=== PATIENT | female | born 1980 | race Caucasian/White ===

== ENCOUNTER → 2021-12-15 15:58 | Outpatient (CLI) | payer OTHER, SELFPAY ==
--- NOTE | ~2021-12-15 | MM_ITS ---
EXAMINATION: MM screening bobby BI w yonis HISTORY: Screening TECHNIQUE: Craniocaudal and mediolateral oblique 3-D tomosynthesis images were obtained and synthetic 2-D images were generated. CAD analysis was submitted and interpreted. COMPARISON: 02/16/2013 BREAST PARENCHYMAL COMPOSITION: The breasts are extremely dense, which lowers the sensitivity of mamm ography FINDINGS: The right breast is stable without evidence for malignancy. There are focal asymmetries in the left breast involving the upper inner quadrant and the posterior lateral aspect of the left breas t on CC view. No prior examinations of the left breast are available for comparison. IMPRESSION: 1. Left breast asymmetries. 2. Additional mammographic views and possible breast ultrasound are recommended. BI-RADS Category 0: Incomplete: Needs additional imaging evaluation. Reviewed, dictated and finalized at location A. IMPRESSION: 1. Left breast asymmetries. 2. Additional mammographic views and possible breast ultrasound are recommended . BI-RADS Category 0: Incomplete: Needs additional imaging evaluation.
== END ==
PROVIDERS: PCP Family Medicine; Visit Provider Family Medicine
DX: Z12.31 Encounter for screening mammogram for malignant neoplasm of breast (principal); R92.8 Other abnormal and inconclusive findings on diagnostic imaging of breast
CPT/HCPCS: 77063; 77067

== ENCOUNTER 2021-12-18 11:53 | Outpatient (CLI) | payer OTHER, SELFPAY ==
--- NOTE | ~2021-12-18 | MMUS_ITS ---
EXAMINATION: MM diagnostic bobby LT w yonis, US breast LT complete HISTORY: Follow-up left breast asymmetries TECHNIQUE: Additional 3-D tomosynthesis images of the left breast were performed and synthetic 2-D im ages were generated. CAD analysis was submitted and interpreted. High resolution complete left breast ultrasound was performed. COMPARISON: 12/15/2021 BREAST PARENCHYMAL COMPOSITION: The breasts are extremely dense, which lowers the sensitivity of mamm ography FINDINGS: MAMMOGRAPHIC FINDINGS: There are no suspicious masses, calcifications or architectural distortion in the left breast to sugg est malignancy. ULTRASOUND: Complete US of all 4 quadrants of the left breast and retroareolar region was reviewed. At 1:00, 3 cm from the nipple, there is a 6 mm cyst. No suspicious masses to suggest malignancy. IMPRESSION: 1. No evidence for malignancy in the left breast. Benign findings. 2. Routine yearly screening mammogram and regular clinical breast examination are recommended. BI-RADS Category 2: Benign finding(s). Reviewed, dictated and finalized at location A. IMPRESSION: 1. No evidence for malignancy in the left breast. Benign findings. 2. Routine yearly screening mammogram and regular clinical breast examination a re recommended. BI-RADS Category 2: Benign finding(s).
== END 2021-12-18 11:54 | disposition home or self-care (01) ==
LOC: ANHIMG 11:54
PROVIDERS: PCP Family Medicine; Visit Provider Family Medicine
DX: R92.8 Other abnormal and inconclusive findings on diagnostic imaging of breast (principal); N60.02 Solitary cyst of left breast
CPT/HCPCS: 76641; 77061; 77065; G0279

== ENCOUNTER 2022-11-15 14:26 | Outpatient (CLI) | payer OTHER, SELFPAY ==
--- NOTE | ~2022-11-15 | MM_ITS ---
EXAMINATION: MM screening bobby BI w yonis HISTORY: Screening TECHNIQUE: Craniocaudal and mediolateral oblique 3-D tomosynthesis images were obtained and synthetic 2-D images were generated. CAD analysis was submitted and interpreted. COMPARISON: Comparison to multiple prior studies sequentially, with oldest reviewed study dated 02/16. BREAST PARENCHYMAL COMPOSITION: The breasts are extremely dense, which lowers the sensitivity of mamm ography. FINDINGS: There is no evidence of suspicious mass, calcification, or architectural distortion to sugg est malignancy in either breast. There has been no suspicious interval change. IMPRESSION: 1. No mammographic evidence of malignancy. 2. Recommend routine screening mammography in one year. BI-RADS Category 1: Negative Reviewed, dictated and finalized at location A.
== END 2022-11-15 14:27 | disposition home or self-care (01) ==
LOC: ANHIMG 14:28
PROVIDERS: PCP Family Medicine; Visit Provider Obstetrics & Gynecology Gynecology
DX: Z12.31 Encounter for screening mammogram for malignant neoplasm of breast (principal)
CPT/HCPCS: 77063; 77067

== ENCOUNTER 2023-08-08 10:50 | Outpatient (CLI) | payer OTHER, SELFPAY ==
[2023-08-08 19:59] LABS: Basophils Percent Auto 0.5 % (0.2-1.2); Eosinophils Absolute Auto 0.1 K/mm3 (0-0.3); Eosinophils Percent Auto 1.9 % (0-4.4); Hematocrit 39.3 % (37.0-47.0); Hemoglobin 12.4 g/dL (12.0-15.0); Immature Granulocyte Absolute 0.02 K/mm3 (0.00-0.031); Immature Granulocyte Percent A 0.3 % (0-0.5); Lymphocytes Absolute Auto 2.02 K/mm3 (0.9-3.2); Lymphocytes Percent Auto 27.2 % (18.3-44.2); Mean Corpuscular HGB Conc 31.6 g/dl (32-36); Mean Corpuscular Hemoglobin 30.5 pg (26-34); Mean Corpuscular Volume 96.6 fl (80-100); Mean Platelet Volume 11.6 fl (7.4-10.4); Monocytes Absolute Auto 0.6 K/mm3 (0.1-0.6); Monocytes Percent Auto 7.4 % (2.6-8.5); Neutrophils Absolute Auto 4.7 K/mm3 (1.3-6.7); Neutrophils Percent Auto 62.7 % (45.5-73.1); Platelet Count Result 288 k/mm3 (150-375); Red Blood Count 4.07 M/mm3 (4.2-5.4); Red Cell Distribution Width 12.4 % (11.5-14.5); White Blood Count 7.4 K/mm3 (4.5-10.0)
[2023-08-08 20:54] LABS: Alanine Aminotransferase 14 U/L (6-35); Albumin Level 4.2 g/dL (3.5-5.1); Alkaline Phosphatase 53 U/L (38-126); Anion Gap 5 mmol/L (8-16); Aspartate Amino Transferase 27 U/L (14-36); Bilirubin,Total 0.6 mg/dL (0.2-1.3); Blood Urea Nitrogen 12 mg/dL (7-17); Calcium 9.1 mg/dL (8.4-10.2); Carbon Dioxide 29 mmol/L (22-30); Chloride 104 mmol/L (98-107); Cholesterol 206 mg/dL (0-200); Estimated Glomerular Filt Rate > 60; Glucose 90 mg/dL (65-110); HDL Direct 62 mg/dL; Potassium 4.1 mmol/L (3.4-5.0); Sodium 138 mmol/L (137-145); Triglycerides 153 mg/dL (<150)
[2023-08-08 21:05] LABS: LDL Cholesterol Direct 102 mg/dL
== END 2023-08-08 10:51 | disposition home or self-care (01) ==
LOC: ANHGOSHLAB 10:51
PROVIDERS: PCP Family Medicine; Visit Provider Family Medicine
DX: Z00.00 Encounter for general adult medical examination without abnormal findings (principal)
CPT/HCPCS: 36415; 80053; 80061; 85025

== ENCOUNTER 2023-12-13 15:24 | Outpatient (CLI) | payer OTHER, SELFPAY ==
--- NOTE | ~2023-12-13 | MM_ITS ---
EXAMINATION: MM screening bobby BI w yonis HISTORY: Screening mammogram TECHNIQUE: Craniocaudal and mediolateral oblique 3-D tomosynthesis images were obtained and synthetic 2-D images were generated. CAD analysis was submitted and interpreted. COMPARISON: 11/15/2022 bilateral screening mammogram 12/18/2021 diagnostic left mammogram and complete left breast ultrasound examination 12/15/2021 bilateral screening mammogram BREAST PARENCHYMAL COMPOSITION: The breasts are extremely dense, which lowers the sensitivity of mamm ography. FINDINGS: There is no evidence of suspicious mass, calcification, or architectural distortion to sugg est malignancy in either breast. There has been no suspicious interval change. IMPRESSION: 1. No mammographic evidence of malignancy. 2. Recommend routine screening mammography in one year. BI-RADS Category 1: Negative Reviewed, dictated and finalized at location A.
== END 2023-12-13 15:25 | disposition home or self-care (01) ==
LOC: ANHIMG 15:26
PROVIDERS: PCP Family Medicine; Visit Provider Obstetrics & Gynecology Gynecology
DX: Z12.31 Encounter for screening mammogram for malignant neoplasm of breast (principal)
CPT/HCPCS: 77063; 77067

== ENCOUNTER 2024-12-13 10:07 | Outpatient (CLI) | payer OTHER, SELFPAY ==
--- NOTE | ~2024-12-13 | MM_ITS ---
EXAMINATION: MM screening bobby BI w yonis HISTORY: Screening TECHNIQUE: Craniocaudal and mediolateral oblique 3-D tomosynthesis images were obtained and synthetic 2-D images were generated. CAD analysis was submitted and interpreted. COMPARISON: Comparison to multiple prior studies sequentially, with oldest reviewed study dated 12/15. BREAST PARENCHYMAL COMPOSITION: Dense: The breasts are heterogeneously dense, which may obscure small masses FINDINGS: There is no evidence of suspicious mass, calcification, or architectural distortion to sugg est malignancy in either breast. There has been no suspicious interval change. IMPRESSION: 1. No mammographic evidence of malignancy. 2. Recommend routine screening mammography in one year. BI-RADS Category 1: Negative Reviewed, dictated and finalized at location A.
--- OUTSIDE RECORDS SUMMARY | 2024-12-13 11:17 | XMS_ITS | Clinical Summary ---
Author Organization [facility] [place] Address [address] [place] [address] Phone Care Team Providers Care General Supervisor Name Role Phone RON CABAN, JAMSHID Stevens Primary Care Provider [phone] Reason for Visit and Chief Complaint gynecologic annual exam - The Chief Complaint is: annual Problems Includes: Problems addressed during this encounter and other active Problems All Visits Onset Date Resolved Date Provider Condition S tatus ABN PAP CERVIX HPV NEC 01/04/2012 JAMSHID VELASQUEZ MD Active Last Documented On 2 3:31PM ; [facility] CERVICAL (HPV) DNA POS 01/04/2012 JAMSHID VELASQUEZ MD Active Last Documented On 2 3:31PM ; [facility] Pap Smear (ASC-US) 01/04/2012 JAMSHID VELASQUEZ MD Active Last Documented On 2 3:30PM ; [facility] Plan of Treatment Contraception: s/p vasectomy. Considering trying to conceive at some point (possibly using donor sperm) now that they're but declines referral to [facility] at this time - Last Documented On 03/24/2015 4:01PM ; [facility] Instructions to patient Instructions for patient : B reast Self Exam discussed Last Documented On 5 3:50PM ; [facility] Education and Decision Aids were provided during visit for: STD screening offered and de clined Last Documented On 5 3:50PM ; [facility] Assessments Includes: Assessments from this encounter Findings - Routine pelvic exam - Last Documented On 03/24/2015 4:01PM ; [facility] Instructions Includes: Instructions from this encounter Instructions to patient Instructions for patient : B reast Self Exam discussed Last Documented On 5 3:50PM ; [facility] Education and Decision Aids were provided during visit for: STD screening offered and de clined Last Documented On 5 3:50PM ; [facility] Medical Equipment - Implanted Devices Includes: Current Devices No Medical Equipment Recorded Medications Includes: Medications discussed during this encounter and other current Medications No Medications Taken Medications Administered Includes: Administered Medications from this encounter No Administered Medications Recorded Vital Signs Includes: Vital Signs from this encounter Vital Name 03/24/2015 03:22P Blood Pressure Sitting (mmHg) 110/64 Height (in) .61 Weight (lb) 126 Body Mass Index (kg/m2) 9999.0 Body Surface Area (m2) 0.1 Last Documented: On 03/24/2015 3:27PM ; [facility] Results Includes: Results discussed during this encounter No Results Recorded For Specified Dates History of Present Illness Includes: History of Present Illness from this encounter EDMUNDO DENNIS is a 34 year old female. - No unusual bleeding. - No pelvic pain - No vaginal discharge Social History Description Last Updated In monogamous relationship 03/24/2015 Last Documented On 5 4:01PM ; [facility] Alcohol use: 2 drinks or less per day oc cassionally 03/24/2015 Last Documented On 5 4:01PM ; [facility] Non-smoker 03/24/2015 Last Documented On 5 4:01PM ; [facility] Sexually active 03/24/2015 Last Documented On 5 4:01PM ; [facility] Smoking status : Never smoker 03/24/2015 Last Documented On 5 4:01PM ; [facility] Procedures and Surgical History Includes: Procedures from this encounter Procedures Code Diagnosis Performing Provider Service L ocation Service Date Clinical summary provided to patient Last Documented On 5 3:50PM ; [facility] cervical Pap smear 94679 Last Documented On 5 3:50PM ; [facility] Medical History Includes: Medical History addressed during this encounter Description Last Updated Contraception: partner vasectomy 015 Last Documented On 5 4:01PM ; [facility] 0 03/24/2015 Last Documented On 5 4:01PM ; [facility] Last mammogram date: 02/16/2013 5 Last Documented On 5 4:01PM ; [facility] Last pap smear date 01/17/2014 03/24/2015 Last Documented On 5 4:01PM ; [facility] Result: abnormal lgsil + hpv 03/24/2015 Last Documented On 5 4:01PM ; [facility] Result: normal 03/24/2015 Last Documented On 5 4:01PM ; [facility] Family History Includes: Family History addressed during this encounter Description Last Updated Family history of malignant female breas t neoplasm grandmother 03/24/2015 Last Documented On 5 4:01PM ; [facility] Review of Systems Includes: Review of Systems from this encounter Systemic: No recent weight change. Head: No headache. Eyes: No vision problems. Otolaryngeal: No hoarseness. Cardiovascular: No chest pain or discomfort and no palpitations. Pulmonary: No shortness of breath. Gastrointestinal: Normal appetite. No nausea, no vomiting, and no hematochezia. No diarrhea and no constipation. Genitourinary: No nocturia. No urinary loss of control and no dysuria. Musculoskeletal: No arthralgias and no localized joint swelling. Neurological: No tingling and no numbness. Psychological: No anxiety, no depression, and no sleep disturbances. Mental Status Includes: Mental Status from this encounter Description No anxiety Functional Status Includes: Functional Status from this encounter No Functional Status Recorded Physical Exam Includes: Physical Exam from this encounter Allergies Includes: Active Allergies No Known Allergies Encounters Encounter Provider Location Date Check-In Time Check-Out Time Diagnosis EXPORT ADMINISTRATOR EXAM JAMSHID VELASQUEZ MD [facility] LICENSED ELECTRICIAN 5 3:16PM 4:04PM Routine Pelvic Exam Insurance Includes: Active Insurance Policies Plan Name Member ID Group # Subscriber Relationship Effect bienvenido Dates 1 - [facility] [id number] MARIA C DENNIS Clinical Notes Includes: Clinical Notes from this encounter No Clinical Notes Recorded
--- OUTSIDE RECORDS SUMMARY | 2024-12-13 11:17 | XMS_ITS | Clinical Summary ---
Author Organization [facility] Address [address] [place] [address] Care Team Providers Care Cable Television Technician Name Role Phone None, Provider Primary Care Provider Unavaila ble Social History Tobacco Use Types Packs/Day Years Used Date Smoking Tobacco: Never Assessed Comments Unknown Sex and Gender Information Value Date Recorded Sex Assigned at Not on file Legal Sex Female 5:44 PM CDT Gender Identity Not on file Sexual Orientation Not on file Plan of Treatment Health Maintenance Due Date Last Done Comments Cervical Cancer Screening Pa p Smear (Age 30 to 64) Every 3 Years 1980 Annual Physical 1984 Hepatitis C 10/31/1999 DTaP, Tdap and Td Vaccines ( 1 - Tdap) 2000 Hepatitis B Vaccines (1 of 3 - 19+ 3-dose series) 2000 Cervical Cancer Screening Pa p with HPV Testing (Age 30 to 64) Every 5 Years 10/31/2011 Cervical Cancer Screening with HPV 10/31/2011 Mammogram Screening 2021 COVID-19 Vaccine (2023-2 5 season) 2024 HPV Vaccines Aged Out No longer eligi ble based on patient's age to complete this topic Meningococcal B Vaccine Aged Out No l onger eligible based on patient's age to complete this topic Meningococcal Vaccine Aged Out No connie dvaid eligible based on patient's age to complete this topic Pneumococcal Vaccine: Pediat rics (0 to 5 Years) and At-Risk Patients (6 to 49 Years) Aged Out No longer eligible b ased on patient's age to complete this topic RSV Immunizations Under 20 Months Aged Out No longer eligible based on patient's age to complete this topic Care Teams Cable Television Technician Relationship Specialty Start Date End Date None, Provider, PCP - General 06/02/20
--- OUTSIDE RECORDS SUMMARY | 2024-12-13 11:17 | XMS_ITS ---
Care Plan - [facility] Created on: December 13, 2024 AYESHA DENNIS : 1980 Sex: Female Author Organization [facility] Address [address] [place] [address] Phone Care Team Providers Care Meter Repair Shop Supervisor Name Role Phone RON CABAN, JAMSHID Stevens Primary Care Provider [phone]
--- OUTSIDE RECORDS SUMMARY | 2024-12-13 11:17 | XMS_ITS | Clinical Summary ---
Author Organization [facility] Address [address] [place] [address] Phone Care Team Providers Care Hostel Manager Name Role Phone RON CABAN, JAMSHID Stevens Primary Care Provider [phone] Reason for Visit and Chief Complaint The Chief Complaint is: Colpo Problems Includes: Problems addressed during this encounter and other active Problems All Visits Onset Date Resolved Date Provider Condition S tatus ABN PAP CERVIX HPV NEC 01/04/2012 JAMSHID VELASQUEZ MD Active Last Documented On 2 3:31PM ; [facility] CERVICAL (HPV) DNA POS 01/04/2012 JAMSHID VELASQUEZ MD Active Last Documented On 2 3:31PM ; [facility] Pap Smear (ASC-US) 01/04/2012 JAMSHID VELASQUEZ MD Active Last Documented On 2 3:30PM ; [facility] Plan of Treatment Pending Tests Order Diagnosis Results Due Ordering Shravan teixeira In office procedures - OB Colposcopy w/Biospy Cervix $ Curettage Low grade intrepith lesion cyto smr crvx (LGSIL) 05/21/16 JAMSHID VELASQUEZ MD Last Documented On 6 2:47PM ; [facility] Education and Decision Aids were provided during visit for: INFORMED CONSENT DISCUSSION: Colposcopy was discussed in detail including risk of post procedure bleeding. Patient is not to have intercourse for 7 days following the procedure. Patient expressed understanding of the above and consented to the procedure Last Documented On 6 2:46PM ; [facility] Assessments Includes: Assessments from this encounter Findings - Abnormal Pap smear of cervix - Last Documented On 05/07/2016 2:48PM ; [facility] - Cervical Pap smear: low grade squamous intraepithelial lesion - Last Documented On 05/07/2016 2:48PM ; [facility] - Cervical high risk human papilloma virus DNA test was positive - Last Documented On 05/07/2016 2:48PM ; [facility] Instructions Includes: Instructions from this encounter Education and Decision Aids were provided during visit for: INFORMED CONSENT DISCUSSION: Colposcopy was discussed in detail including risk of post procedure bleeding. Patient is not to have intercourse for 7 days following the procedure. Patient expressed understanding of the above and consented to the procedure Last Documented On 6 2:46PM ; [facility] Medical Equipment - Implanted Devices Includes: Current Devices No Medical Equipment Recorded Medications Includes: Medications discussed during this encounter and other current Medications No Medications Taken Medications Administered Includes: Administered Medications from this encounter No Administered Medications Recorded Vital Signs Includes: Vital Signs from this encounter Vital Name 05/07/2016 02:17P Blood Pressure Sitting (mmHg) 128/80 Pulse Rate-Sitting (bpm) 64 Height (in) 65 Weight (lb) 128.8 Body Mass Index (kg/m2) 21.4 Body Surface Area (m2) 1.6 Last Documented: On 05/07/2016 2:21PM ; [facility] Results Includes: Results discussed during this encounter No Results Recorded For Specified Dates History of Present Illness Includes: History of Present Illness from this encounter No History of Present Illness Recorded Social History Description Last Updated Alcohol use: 2 drinks or less per day oc c 05/07/2016 Last Documented On 6 2:48PM ; [facility] Sexually active 05/07/2016 Last Documented On 6 2:48PM ; [facility] Smoking Status Unknown Procedures and Surgical History Includes: Procedures from this encounter Procedures Code Diagnosis Performing Provider Service L ocation Service Date colposcopy of cervix The patient was placed in the dorsal lithotomy position and a vaginal speculum was inserted. Acetic acid (5%) was applied to the cervix. Biopsies were performed. An ECC was done. Monsol's solution was applied as needed to the cervix via a long swab. EBL = minimal. Complications: none. Specimen(s) send to pathology: The pathology results will be reviewed when received and patient will be notified of the results at that time [id number] Last Documented On 6 2:46PM ; [facility] Medical History Includes: Medical History addressed during this encounter Description Last Updated Contraception: partner vasectomy 016 Last Documented On 6 2:48PM ; [facility] LMP: 04/29/2016 05/07/2016 Last Documented On 6 2:48PM ; [facility] 0 05/07/2016 Last Documented On 6 2:48PM ; [facility] Last mammogram date: 02/16/2013 6 Last Documented On 6 2:48PM ; [facility] Last pap smear date 03/30/2016 05/07/2016 Last Documented On 6 2:48PM ; [facility] Para 0 05/07/2016 Last Documented On 6 2:48PM ; [facility] Result: abnormal LSIL 05/07/2016 Last Documented On 6 2:48PM ; [facility] Family History Includes: Family History addressed during this encounter Description Last Updated Family history of malignant female breas t neoplasm maternal grandmother 03/30/2016 Last Documented On 6 2:09PM ; [facility] Family history unchanged 01/16/2013 Last Documented On 6 2:09PM ; [facility] No family history of diabetes mellitus 0 01/16/2013 Last Documented On 6 2:09PM ; [facility] No family history of malignant neoplasm of the large intestine 01/16/2013 Last Documented On 6 2:09PM ; [facility] No family history of malignant neoplasm of the ovary 01/16/2013 Last Documented On 6 2:09PM ; [facility] Review of Systems Includes: Review of Systems from this encounter No Review of Systems Recorded Mental Status Includes: Mental Status from this encounter No Mental Status Recorded Functional Status Includes: Functional Status from this encounter No Functional Status Recorded Physical Exam Includes: Physical Exam from this encounter Allergies Includes: Active Allergies No Known Allergies Encounters Encounter Provider Location Date Check-In Time Check-Out Time Diagnosis COLPOSCOPY JAMSHID VELASQUEZ MD [facility] [place] 05/07/20 16 2:07PM 2:53PM Assessment of Abnormal Pap Smear of Cervix,Assessment of Pap Smear (+) Low Grade Squamous Intraepithelial Lesion,Assessment of Cervical High Risk Human Papilloma Virus Dna Test Insurance Includes: Active Insurance Policies Plan Name Member ID Group # Subscriber Relationship Effect bienvenido Dates 1 - [facility] [id number] MARIA C DENNIS Clinical Notes Includes: Clinical Notes from this encounter No Clinical Notes Recorded
--- OUTSIDE RECORDS SUMMARY | 2024-12-13 11:17 | XMS_ITS | Clinical Summary ---
Author Organization [facility] Address [address] [place] [address] Phone Care Team Providers Care Manufacturing Engineering Technician Name Role Phone RON CABAN, JAMSHID Stevens Primary Care Provider [phone] Reason for Visit and Chief Complaint gynecologic annual exam - The Chief Complaint is: Annual exam. Pt is concerned about severe cramping she had right before her last period. The cramps woke her up and also caused nausea. The pain was only on that night and didn't happen again Problems Includes: Problems addressed during this encounter and other active Problems All Visits Onset Date Resolved Date Provider Condition S tatus ABN PAP CERVIX HPV NEC 01/04/2012 JAMSHID VELASQUEZ MD Active Last Documented On 2 3:31PM ; [facility] CERVICAL (HPV) DNA POS 01/04/2012 JAMSHID VELASQUEZ MD Active Last Documented On 2 3:31PM ; [facility] Pap Smear (ASC-US) 01/04/2012 JAMSHID VELASQUEZ MD Active Last Documented On 2 3:30PM ; [facility] Plan of Treatment Contraception: s/p vasectomy. She and her have decided not to have children together. They have a [id number] grandson and another on the way Dysmenorrhea: I assured her not to worry if this was a one time thing but to let me know if persistent severe pain or other severe symptoms on her period - Last Documented On 03/30/2016 3:47PM ; [facility] Instructions to patient Instructions for patient : B reast Self Exam discussed Last Documented On 6 3:32PM ; [facility] Education and Decision Aids were provided during visit for: STD screening offered and de clined Last Documented On 6 3:32PM ; [facility] Assessments Includes: Assessments from this encounter Findings - Routine pelvic exam - Last Documented On 03/30/2016 3:47PM ; [facility] Instructions Includes: Instructions from this encounter Instructions to patient Instructions for patient : B reast Self Exam discussed Last Documented On 6 3:32PM ; [facility] Education and Decision Aids were provided during visit for: STD screening offered and de clined Last Documented On 6 3:32PM ; [facility] Medical Equipment - Implanted Devices Includes: Current Devices No Medical Equipment Recorded Medications Includes: Medications discussed during this encounter and other current Medications No Medications Taken Medications Administered Includes: Administered Medications from this encounter No Administered Medications Recorded Vital Signs Includes: Vital Signs from this encounter Vital Name 03/30/2016 03:21P Blood Pressure Sitting (mmHg) 104/58 Height (in) 65 Weight (lb) 130 Body Mass Index (kg/m2) 21.6 Body Surface Area (m2) 1.6 Last Documented: On 03/30/2016 3:26PM ; [facility] Results Includes: Results discussed during this encounter No Results Recorded For Specified Dates History of Present Illness Includes: History of Present Illness from this encounter HPI AYESHA DENNIS is a 35 year old female. - No unusual bleeding periods monthly 2 days of bleeding then spotting. - No pelvic pain currently, always has mild cramps on period but last period she had severe cramps and nausea for a few hours which was unusual. - No vaginal discharge. Social History Description Last Updated In monogamous relationship 03/30/2016 Last Documented On 6 3:47PM ; [facility] Alcohol use: 2 drinks or less per day oc c 03/30/2016 Last Documented On 6 3:47PM ; [facility] Sexually active 03/30/2016 Last Documented On 6 3:47PM ; [facility] Smoking status : Never smoker 03/30/2016 Last Documented On 6 3:47PM ; [facility] Procedures and Surgical History Includes: Procedures from this encounter Procedures Code Diagnosis Performing Provider Service L ocation Service Date Clinical summary provided to patient Last Documented On 6 3:32PM ; [facility] cervical Pap smear [id number] Last Documented On 6 3:32PM ; [facility] Medical History Includes: Medical History addressed during this encounter Description Last Updated LMP: 03/03/2016 03/30/2016 Last Documented On 6 3:47PM ; [facility] Contraception: partner has vasectomy 04/2016 Last Documented On 6 3:47PM ; [facility] 0 03/30/2016 Last Documented On 6 3:47PM ; [facility] Last mammogram date: 02/16/2013 6 Last Documented On 6 3:47PM ; [facility] Last pap smear date 03/24/2015 03/30/2016 Last Documented On 6 3:47PM ; [facility] Result: normal 03/30/2016 Last Documented On 6 3:47PM ; [facility] Family History Includes: Family History addressed during this encounter Description Last Updated Family history of malignant female breas t neoplasm maternal grandmother 03/30/2016 Last Documented On 6 3:47PM ; [facility] Family history unchanged 01/16/2013 Last Documented On 6 3:18PM ; [facility] No family history of diabetes mellitus 0 01/16/2013 Last Documented On 6 3:18PM ; [facility] No family history of malignant neoplasm of the large intestine 01/16/2013 Last Documented On 6 3:18PM ; [facility] No family history of malignant neoplasm of the ovary 01/16/2013 Last Documented On 6 3:18PM ; [facility] Review of Systems Includes: Review [...] Location Date Check-In Time Check-Out Time Diagnosis VENDING MANAGER EXAM JAMSHID VELASQUEZ MD [facility] PEST CONTROL OPERATOR 6 3:18PM 3:48PM Routine Pelvic Exam Insurance Includes: Active Insurance Policies Plan Name Member ID Group # Subscriber Relationship Effect bienvenido Dates - [facility] [id number] MARIA C DENNIS Clinical Notes Includes: Clinical Notes from this encounter No Clinical Notes Recorded
--- OUTSIDE RECORDS SUMMARY | 2024-12-13 11:17 | XMS_ITS | Clinical Summary ---
Author Organization [facility] Address [address] [place] [address] Phone Care Team Providers Care Automotive Sales Executive Name Role Phone RON CABAN, JAMSHID Stevens Primary Care Provider [phone] Reason for Visit and Chief Complaint COLPOSCOPY Problems Includes: Problems addressed during this encounter and other active Problems All Visits Onset Date Resolved Date Provider Condition S tatus ABN PAP CERVIX HPV NEC 01/04/2012 JAMSHID VELASQUEZ MD Active Last Documented On 2 3:31PM ; [facility] CERVICAL (HPV) DNA POS 01/04/2012 JAMSHID VELASQUEZ MD Active Last Documented On 2 3:31PM ; [facility] Pap Smear (ASC-US) 01/04/2012 JAMSHID VELASQUEZ MD Active Last Documented On 2 3:30PM ; [facility] Plan of Treatment No Plan of Treatment Recorded Assessments Includes: Assessments from this encounter No Assessments Recorded Medical Equipment - Implanted Devices Includes: Current Devices No Medical Equipment Recorded Medications Includes: Medications discussed during this encounter and other current Medications No Medications Taken Medications Administered Includes: Administered Medications from this encounter No Administered Medications Recorded Results Includes: Results discussed during this encounter No Results Recorded For Specified Dates History of Present Illness Includes: History of Present Illness from this encounter No History of Present Illness Recorded Social History No Social History Recorded - Smoking Status Unknown Medical History Includes: Medical History addressed during this encounter No Medical History Recorded Family History Includes: Family History addressed during this encounter No Family History Recorded Review of Systems Includes: Review of Systems from this encounter No Review of Systems Recorded Mental Status Includes: Mental Status from this encounter No Mental Status Recorded Functional Status Includes: Functional Status from this encounter No Functional Status Recorded Physical Exam Includes: Physical Exam from this encounter No Physical Exam Recorded Allergies Includes: Active Allergies No Known Allergies Insurance Includes: Active Insurance Policies Plan Name Member ID Group # Subscriber Relationship Effect bienvenido Dates - [facility] [id number] MARIA C DENNIS Clinical Notes Includes: Clinical Notes from this encounter No Clinical Notes Recorded
--- OUTSIDE RECORDS SUMMARY | 2024-12-13 11:17 | XMS_ITS ---
Author Organization [facility] Address [address] [place] [address] Phone Care Team Providers Care Chemical Machine Tender Name Role Phone RON CABAN, JAMSHID Stevens Primary Care Provider [phone] Problems Includes: Active, inactive, and resolved Problems All Visits Onset Date Resolved Date Provider Condition S tatus ABN PAP CERVIX HPV NEC 01/04/2012 JAMSHID VELASQUEZ MD Active Last Documented On 2 3:31PM ; [facility] CERVICAL (HPV) DNA POS 01/04/2012 JAMSHID VELASQUEZ MD Active Last Documented On 2 3:31PM ; [facility] Pap Smear (ASC-US) 01/04/2012 JAMSHID VELASQUEZ MD Active Last Documented On 2 3:30PM ; [facility] Plan of Treatment Instructions to patient Instructions for patient : B reast Self Exam discussed Last Documented On 7 4:17PM ; [facility] Instructions for patient : B reast Self Exam discussed Last Documented On 6 3:32PM ; [facility] Instructions for patient : B reast Self Exam discussed Last Documented On 5 3:50PM ; [facility] Instructions for patient : B reast Self Exam discussed Last Documented On 4 3:54PM ; [facility] Instructions for patient : B reast Self Exam discussed Last Documented On 3 2:48PM ; [facility] Instructions for patient : B reast Self Exam discussed Last Documented On 2 3:49PM ; [facility] Instructions for patient : B reast Self Exam discussed Last Documented On 2 4:19PM ; [facility] Instructions for patient : B reast Self Exam discussed Last Documented On 1 2:57PM ; [facility] Education and Decision Aids were provided during visit for: STD screening offered and de clined Last Documented On 7 4:17PM ; [facility] INFORMED CONSENT DISCUSSION: Colposcopy was discussed in detail including risk of post procedure bleeding. Patient is not to have intercourse for 7 days following the procedure. Patient expressed understanding of the above and consented to the procedure Last Documented On 6 2:46PM ; [facility] STD screening offered and de clined Last Documented On 6 3:32PM ; [facility] STD screening offered and de clined Last Documented On 5 3:50PM ; [facility] INFORMED CONSENT DISCUSSION: Colposcopy was discussed in detail including risk of post procedure bleeding. Patient is not to have intercourse for 5 days following the procedure. Patient expressed understanding of the above and consented to the procedure Last Documented On 4 4:03PM ; [facility] STD screening offered and de clined Last Documented On 4 3:54PM ; [facility] STD screening offered and de clined Last Documented On 3 2:48PM ; [facility] STD screening offered and de clined Last Documented On 2 3:49PM ; [facility] STD screening offered and de clined Last Documented On 2 4:19PM ; [facility] STD screening offered and de clined Last Documented On 1 2:57PM ; [facility] INFORMED CONSENT DISCUSSION: Colposcopy was discussed in detail including risk of post procedure bleeding. Patient is not to have intercourse for 5 days following the procedure. Patient expressed understanding of the above and consented to the procedure Last Documented On 1 2:24PM ; [facility] Assessments Includes: Assessments for all patient encounters Findings Encounter Date Routine pelvic exam FENDER FINISHER EXAM with JAMSHID VELASQUEZ MD 04/05/2017 Last Documented On 7 4:33PM ; [facility] Assessment of abnormal Pap s mear of cervix COLPOSCOPY with JAMSHID VELASQUEZ MD 05/07/2016 Last Documented On 6 2:48PM ; [facility] Assessment of cervical high risk human papilloma virus DNA test was positive COLPOSCOPY with JAMSHID VELASQUEZ MD 05/07/2016 Last Documented On 6 2:48PM ; [facility] Assessment of cervical Pap s mear: low grade squamous intraepithelial lesion COLPOSCOPY with JAMSHID VELASQUEZ MD 05/07/2016 Last Documented On 6 2:48PM ; [facility] Routine pelvic exam FENDER FINISHER EXAM with JAMSHID VELASQUEZ MD 03/30/2016 Last Documented On 6 3:47PM ; [facility] Routine pelvic exam FENDER FINISHER EXAM with JAMSHID VELASQUEZ MD 03/24/2015 Last Documented On 5 4:01PM ; [facility] Assessment of abnormal Pap s mear of cervix COLPOSCOPY with JAMSHID VELASQUEZ MD 03/04/2014 Last Documented On 4 4:07PM ; [facility] Assessment of cervical high risk human papilloma virus DNA test was positive COLPOSCOPY with JAMSHID VELASQUEZ MD 03/04/2014 Last Documented On 4 4:07PM ; [facility] Assessment of cervical Pap s mear: low grade squamous intraepithelial lesion COLPOSCOPY with JAMSHID VELASQUEZ MD 03/04/2014 Last Documented On 4 4:07PM ; [facility] Routine pelvic exam FENDER FINISHER EXAM with JAMSHID VELASQUEZ MD 01/17/2014 Last Documented On 4 4:54PM ; [facility] Lump or mass in the right breast FENDER FINISHER EXAM with Emile VELASQUEZ MD 01/16/2013 Last Documented On 3 3:07PM ; [facility] Routine pelvic exam FENDER FINISHER EXAM with JAMSHID VELASQUEZ MD 01/16/2013 Last Documented On 3 3:07PM ; [facility] Routine pelvic exam FENDER FINISHER EXAM with JAMSHID VELASQUEZ MD 01/04/2012 Last Documented On 2 4:35PM ; [facility] Routine pelvic exam PAP SMEAR ONLY with JAMSHID BUNN MD 06/10/2011 Last Documented On 1 2:58PM ; [facility] Female infertility COLPOSCOPY with JAMSHID VELASQUEZ MD 12/28/2010 Last Documented On 1 8:37AM ; [facility] Instructions Includes: Instructions for all patient encounters Instructions to patient Instructions for patient : B reast Self Exam discussed Last Documented On 7 4:17PM ; [facility] Instructions for patient : B reast Self Exam discussed Last Documented On 6 3:32PM ; [facility] Instructions for patient : B reast Self Exam discussed Last Documented On 5 3:50PM ; [facility] Instructions for patient : B reast Self Exam discussed Last Documented On 4 3:54PM ; [facility] Instructions for patient : B reast Self Exam discussed Last Documented On 3 2:48PM ; [facility] Instructions for patient : B reast Self Exam discussed Last Documented On 2 3:49PM ; [facility] Instructions for patient : B reast Self Exam discussed Last Documented On 2 4:19PM ; [facility] Instructions for patient : B reast Self Exam discussed Last Documented On 1 2:57PM ; [facility] Education and Decision Aids were provided during visit for: STD screening offered and de clined Last Documented On 7 4:17PM ; [facility] INFORMED CONSENT DISCUSSION: Colposcopy was discussed in detail including risk of post procedure bleeding. Patient is not to have intercourse for 7 days following the procedure. Patient expressed understanding of the above and consented to the procedure Last Documented On 6 2:46PM ; [facility] STD screening offered and de clined Last Documented On 6 3:32PM ; [facility] STD screening offered and de clined Last Documented On 5 3:50PM ; [facility] INFORMED CONSENT DISCUSSION: Colposcopy was discussed in detail including risk of post procedure bleeding. Patient is not to have intercourse for 5 days following the procedure. Patient expressed understanding of the above and consented to the procedure Last Documented On 4 4:03PM ; [facility] STD screening offered and de clined Last Documented On 4 3:54PM ; [facility] STD screening offered and de clined Last Documented On 3 2:48PM ; [facility] STD screening offered and de clined Last Documented On 2 3:49PM ; [facility] STD screening offered and de clined Last Documented On 2 4:19PM ; [facility] STD screening offered and de clined Last Documented On 1 2:57PM ; [facility] INFORMED CONSENT DISCUSSION: Colposcopy was discussed in detail including risk of post procedure bleeding. Patient is not to have intercourse for 5 days following the procedure. Patient expressed understanding of the above and consented to the procedure Last Documented On 1 2:24PM ; [facility] Medical Equipment - Implanted Devices Includes: Current and historical Devices No Medical Equipment Recorded Medications Includes: Current and historical Medications Past Medications on file Advil Congestion Relief 10-200 MG OR TABS 01/17/2014 - 03/04/2014 Provider: Diagnosis: takes prn h/a. did take a dose today. Last Documented On 03/04/2014 3:45PM By MALU GUERIN ; [facility] Medications Administered Includes: Administered Medications in patient's chart No Administered Medications Recorded Results Includes: Results from 12/14/2023 through 12/13/2024 No Results Recorded For Specified Dates History of Present Illness History of Present Illness not supported for this document type No History of Present Illness Recorded Social History Description Last Updated Alcohol use occ 04/05/2017 Last Documented On 7 4:33PM ; [facility] Not using drugs 04/05/2017 Last Documented On 7 4:33PM ; [facility] 12/28/2010 Last Documented On 1 8:37AM ; [facility] Orthodox affiliation restorationism 12/29/19 11 Last Documented On 1 8:37AM ; [facility] Smoking Status Unknown Procedures and Surgical History Surgical History Last Updated Surgical / procedural history colpo -wnl 06/10/2011 Last Documented On 1 2:58PM ; [facility] Medical History Includes: Medical History in patient's chart Description Last Updated History of cervical dysplasia 04/05/2017 Last Documented On 7 4:33PM ; [facility] History of Pap smear done 03/12/201703/22 Last Documented On 7 4:33PM ; [facility] Sexually active 04/05/2017 Last Documented On 7 4:33PM ; [facility] LMP: 04/29/2016 05/07/2016 Last Documented On 6 2:48PM ; [facility] 0 05/07/2016 Last Documented On 6 2:48PM ; [facility] Para 0 05/07/2016 Last Documented On 6 2:48PM ; [facility] History of human papilloma virus infecti on 01/17/2014 Last Documented On 4 4:54PM ; [facility] cx bx/ecc 12/28/10 benign 01/16/2013 Last Documented On 3 3:07PM ; [facility] Family History Includes: Family History in patient's chart Description Last Updated Spouse name: Chadnu 04/05/2017 Last Documented On 7 4:33PM ; [facility] Maternal grandmother's histo ry of malignant female breast neoplasm maternal grandmother 04/05/2017 Last Documented On 7 4:33PM ; [facility] Family history of malignant female breas t neoplasm maternal grandmother 03/30/2016 Last Documented On 6 3:47PM ; [facility] Family history unchanged 01/16/2013 Last Documented On 3 3:07PM ; [facility] Review of Systems Review of Systems not supported for this document type No Review of Systems Recorded Mental Status Description No anxiety Functional Status No Functional Status Recorded Physical Exam Physical Exam not supported for this document type No Physical Exam Recorded Allergies Includes: Active, inactive, and resolved Allergies No Known Allergies Insurance Includes: Active Insurance Policies Plan Name Member ID Group # Subscriber Relationship Effect bienvenido Dates 1 - [facility] [id number] CHANDU DENNIS Clinical Notes Includes: Signed Clinical Notes starting from 09/10/2022 No Clinical Notes Recorded
--- OUTSIDE RECORDS SUMMARY | 2024-12-13 11:17 | XMS_ITS | Clinical Summary ---
Author Organization [facility] [employer] Address [facility] [place] [address] Care Team Providers Care Nuclear Fuel Processing Technician Name Role Phone Unavailable Primary Care Provider Unavailabl e Source Comments [facility],non-owned Affiliates and Associated Physician Practices is amultiple site organization consisting of ambulatory clinics and hospital sitesin [place], [place], [place] and [place]. This disclosure is being madepursuant to the Care Everywhere program and may not contain all information available regarding this patient. Last updated 18.[facility] [employer] Allergies No known active allergies Medications * Be aware that medications may not be up to date on this document. Alwaysverify current medications with the patient. benzonatate (TESSALON) 200 MG capsuleIndicatio ns:Acute upper respiratory infection Take 1 Cap by mouth 3 times daily as needed for Cough 30 Cap 09/08/2016 Active Active Problems No known active problems Social History Tobacco Use Types Packs/Day Years Used Date Smoking Tobacco: Never Alcohol Use Standard Drinks/Week Comments Not Asked 0 (1 standard drink = 0.6 oz pur e alcohol) Comments Unknown Sex and Gender Information Value Date Recorded Sex Assigned at Not on file Legal Sex Female 10:02 AM CDT Gender Identity Not on file Sexual Orientation Not on file Last Filed Vital Signs Vital Sign Reading Time Taken Comments Blood Pressure 122/74 09/08/2016 12:15 PM PROPERTY SPECIALIST Pulse 82 09/08/2016 12:15 PM PROPERTY SPECIALIST Temperature 37.2 C (98.9 F) 09/08/2016 12:15 PM PROPERTY SPECIALIST Respiratory Rate 16 09/08/2016 12:15 PM PROPERTY SPECIALIST Oxygen Saturation - - Inhaled Oxygen Concentration - - Weight 59 kg (130 lb) 09/08/2016 12:15 PM PROPERTY SPECIALIST Height 160 cm (5' 3 ) 09/08/2016 12:15 PM PROPERTY SPECIALIST Body Mass Index 23.03 09/08/2016 12:15 PM PROPERTY SPECIALIST Plan of Treatment Health Maintenance Due Date Last Done Comments LIPID TESTING 1981 MAMMOGRAM 1981 HIV SCREENING 1996 HEPATITIS C SCREENING 10/26/1999 DTAP/TDAP/TD VACCINES (1 - Tdap) 2000 HEPATITIS B VACCINE (1 of 3 - 19+ 3-dose series) 2000 COVID-19 VACCINE (1 - 2023-2 5 season) 2024 DEPRESSION SCREENING 08/22/2024 INFLUENZA VACCINE (Season Ended) 2025 ZOSTER VACCINE (1 of 2) 10/31/2031 HIB VACCINE Aged Out No longer eligi ble based on patient's age to complete this topic HPV VACCINE Aged Out No longer eligi ble based on patient's age to complete this topic MENINGOCOCCAL (Group B) VACC INE SHARED DECISION-MAKING Aged Out No longer eligibl e based on patient's age to complete this topic MENINGOCOCCAL GROUPS A/C/Y/W VACCINE Aged Out No longer eligible b ased on patient's age to complete this topic PNEUMOCOCCAL VACCINE Aged Out No long er eligible based on patient's age to complete this topic Insurance [employer]
--- OUTSIDE RECORDS SUMMARY | 2024-12-13 11:17 | XMS_ITS | Clinical Summary ---
Author Organization [facility] Address [address] [place] [address] Phone Care Team Providers Care Shearer Screen Measurer And Trimmer Name Role Phone RON CABAN, JAMSHID Stevens Primary Care Provider [phone] Reason for Visit and Chief Complaint gynecologic annual exam - The Chief Complaint is: Annual ~ Problems Includes: Problems addressed during this encounter and other active Problems All Visits Onset Date Resolved Date Provider Condition S tatus ABN PAP CERVIX HPV NEC 01/04/2012 JAMSHID VELASQUEZ MD Active Last Documented On 2 3:31PM ; [facility] CERVICAL (HPV) DNA POS 01/04/2012 JAMSHID VELASQUEZ MD Active Last Documented On 2 3:31PM ; [facility] Pap Smear (ASC-US) 01/04/2012 JAMSHID VELASQUEZ MD Active Last Documented On 2 3:30PM ; [facility] Plan of Treatment Contraception: s/p vasectomy - Last Documented On 04/05/2017 4:33PM ; [facility] Instructions to patient Instructions for patient : B reast Self Exam discussed Last Documented On 7 4:17PM ; [facility] Education and Decision Aids were provided during visit for: STD screening offered and de clined Last Documented On 7 4:17PM ; [facility] Assessments Includes: Assessments from this encounter Findings - Routine pelvic exam - Last Documented On 04/05/2017 4:33PM ; [facility] Instructions Includes: Instructions from this encounter Instructions to patient Instructions for patient : B reast Self Exam discussed Last Documented On 7 4:17PM ; [facility] Education and Decision Aids were provided during visit for: STD screening offered and de clined Last Documented On 7 4:17PM ; [facility] Medical Equipment - Implanted Devices Includes: Current Devices No Medical Equipment Recorded Medications Includes: Medications discussed during this encounter and other current Medications No Medications Taken Medications Administered Includes: Administered Medications from this encounter No Administered Medications Recorded Vital Signs Includes: Vital Signs from this encounter Vital Name 04/05/2017 04:12P Blood Pressure Sitting L 110/64 BP Cuff Size Regular Height (in) 62 Weight (lb) 134 Body Mass Index (kg/m2) 24.5 Body Surface Area (m2) 1.6 Last Documented: On 04/05/2017 4:13PM ; [facility] Results Includes: Results discussed during this encounter No Results Recorded For Specified Dates History of Present Illness Includes: History of Present Illness from this encounter EDMUNDO DENNIS is a 36 year old female. - Medication list reviewed. - No unusual bleeding. - No pelvic pain. - No vaginal discharge. They now have a 5=year-old grandson Colten and granddaughter Gigi who will be 1 in May! Social History Description Last Updated Alcohol use occ 04/05/2017 Last Documented On 7 4:33PM ; [facility] In monogamous relationship 04/05/2017 Last Documented On 7 4:33PM ; [facility] Non-smoker 04/05/2017 Last Documented On 7 4:33PM ; [facility] Not using drugs 04/05/2017 Last Documented On 7 4:33PM ; [facility] Sexually active with 1 partners in the l ast year 04/05/2017 Last Documented On 7 4:33PM ; [facility] Social history unchanged 04/05/2017 Last Documented On 7 4:33PM ; [facility] Smoking status : Never smoker 04/05/2017 Last Documented On 7 4:33PM ; [facility] 12/28/2010 Last Documented On 7 4:09PM ; [facility] Yarsani affiliation faith 12/29/19 11 Last Documented On 7 4:09PM ; [facility] Procedures and Surgical History Includes: Procedures from this encounter Procedures Code Diagnosis Performing Provider Service L ocation Service Date Clinical summary provided to patient Last Documented On 7 4:17PM ; [facility] cervical Pap smear 02840 Last Documented On 7 4:17PM ; [facility] Surgical History Last Updated Surgical / procedural history colpo -wnl 06/10/2011 Last Documented On 7 4:09PM ; [facility] Medical History Includes: Medical History addressed during this encounter Description Last Updated History of cervical dysplasia 04/05/2017 Last Documented On 7 4:33PM ; [facility] No recent change in medical history 03/22 Last Documented On 7 4:33PM ; [facility] Contraception: vasectomy 04/05/2017 Last Documented On 7 4:33PM ; [facility] History of Pap smear done 03/12/201703/22 Last Documented On 7 4:33PM ; [facility] Sexually active 04/05/2017 Last Documented On 7 4:33PM ; [facility] Result: abnormal lgsil hpv 04/05/2017 Last Documented On 7 4:33PM ; [facility] LMP: 04/29/2016 05/07/2016 Last Documented On 7 4:09PM ; [facility] 0 05/07/2016 Last Documented On 7 4:09PM ; [facility] Para 0 05/07/2016 Last Documented On 7 4:09PM ; [facility] History of human papilloma virus infecti on 01/17/2014 Last Documented On 7 4:09PM ; [facility] cx bx/ecc 12/28/10 benign 01/16/2013 Last Documented On 7 4:09PM ; [facility] Family History Includes: Family History addressed during this encounter Description Last Updated Spouse name: Chandu 04/05/2017 Last Documented On 7 4:33PM ; [facility] Maternal grandmother's histo ry of malignant female breast neoplasm maternal grandmother 04/05/2017 Last Documented On 7 4:33PM ; [facility] Family history unchanged 01/16/2013 Last Documented On 7 4:08PM ; [facility] Review of Systems Includes: Review of Systems [...] Location Date Check-In Time Check-Out Time Diagnosis COMMUNICATIONS ASSOCIATE EXAM JAMSHID VELASQUEZ MD [facility] MARGIN CLERK 7 4:07PM 4:37PM Routine Pelvic Exam Insurance Includes: Active Insurance Policies Plan Name Member ID Group # Subscriber Relationship Effect bienvenido Dates - [facility] [employer] [id number] CHANDU DENNIS Clinical Notes Includes: Clinical Notes from this encounter No Clinical Notes Recorded
== END 2024-12-13 10:08 | disposition home or self-care (01) ==
PROVIDERS: PCP Family Medicine; Visit Provider Obstetrics & Gynecology Gynecology
DX: Z12.31 Encounter for screening mammogram for malignant neoplasm of breast (principal)
CPT/HCPCS: 77063; 77067